=== PATIENT | female | born 1945 | race Caucasian/White ===

== ENCOUNTER 2022-10-15 22:59 | Emergency (ER) | payer BC, OTHER ==
[~2022-10-15] VITALS: Ht 162.6 cm; Wt 120.0 kg
[2022-10-15] MEDS ORDERED: TETANUS-DIPTH-ACEL PERTUSSIS 0.5ML SYR Tdap IM ONE (23:15)
[2022-10-15] MEDS ORDERED: HYDROcodone-ACET 5/325MG TAB PO ONE (23:15)
[2022-10-16] MEDS ORDERED: MAX35OO TOP (00:40)
[2022-10-16] MEDS ORDERED: CEPH-510 PO (00:40)
[2022-10-16] MEDS ORDERED: HYDR-4902 PO (00:41)
[2022-10-16 01:15] VITALS: BP 120/60
== END 2022-10-16 01:30 | disposition home or self-care (01) ==
LOC: ER 22:59 → EDBD 22:59 → ER 10-16 01:16
DX: S81.812A Laceration without foreign body, left lower leg, initial encounter (principal); S80.12XA Contusion of left lower leg, initial encounter; W26.8XXA Contact with other sharp object(s), not elsewhere classified, initial encounter; Y93.89 Activity, other specified; Y92.89 Other specified places as the place of occurrence of the external cause; Y99.8 Other external cause status
CPT/HCPCS: 90471; 90715

== ENCOUNTER 2022-10-19 18:11 | Emergency (ER) | payer BC ==
[~2022-10-19] VITALS: Ht 149.9 cm; Wt 124.4 kg
[~2022-10-19 18:11] MED LIST: CEPH-510 PO; HYDR-4902 PO; MAX35OO TOP
[2022-10-19 21:23] VITALS: BP 143/59
== END 2022-10-19 22:37 | disposition home or self-care (01) ==
LOC: ER 18:20
DX: S81.812D Laceration without foreign body, left lower leg, subsequent encounter (principal); I10 Essential (primary) hypertension; Z90.49 Acquired absence of other specified parts of digestive tract; Z79.899 Other long term (current) drug therapy; W26.8XXD Contact with other sharp object(s), not elsewhere classified, subsequent encounter